=== PATIENT | female | born 1950 | race Caucasian/White ===

== ENCOUNTER 2020-10-18 11:59 | Outpatient (CLI) | payer MEDICARE | END 2020-10-18 12:00 | disposition home or self-care (01) | LOC: CSHCT 11:59 | PROVIDERS: ATTEND Urology | DX: R31.29 Other microscopic hematuria (principal); R82.994 Hypercalciuria; N20.0 Calculus of kidney; N13.1 Hydronephrosis with ureteral stricture, not elsewhere classified; R19.09 Other intra-abdominal and pelvic swelling, mass and lump; E27.9 Disorder of adrenal gland, unspecified; N28.1 Cyst of kidney, acquired | CPT/HCPCS: 74178; 82565 ==

== ENCOUNTER 2022-03-01 11:48 | Outpatient (CLI) | payer MEDICARE, OTHER | END 2022-03-01 11:49 | disposition home or self-care (01) | LOC: CSHMAMMO 11:48 | PROVIDERS: ATTEND Family Medicine | DX: Z12.31 Encounter for screening mammogram for malignant neoplasm of breast (principal); Z80.3 Family history of malignant neoplasm of breast | CPT/HCPCS: 77063; 77067 ==

== ENCOUNTER 2023-04-02 15:51 | Outpatient (CLI) | payer OTHER | END 2023-04-02 15:52 | disposition home or self-care (01) | LOC: CSHMAMMO 15:51 | PROVIDERS: ATTEND Family Medicine | DX: Z12.31 Encounter for screening mammogram for malignant neoplasm of breast (principal) | CPT/HCPCS: 77063; 77067 ==

== ENCOUNTER 2024-04-03 10:26 | Outpatient (CLI) | payer OTHER | END 2024-04-03 10:27 | disposition home or self-care (01) | LOC: CSHMAMMO 10:26 | PROVIDERS: ATTEND Student in an Organized Health Care Education/Training Program | DX: Z12.31 Encounter for screening mammogram for malignant neoplasm of breast (principal); M85.88 Other specified disorders of bone density and structure, other site; Z78.0 Asymptomatic menopausal state; Z80.3 Family history of malignant neoplasm of breast | CPT/HCPCS: 77063; 77067; 77080 ==